=== PATIENT | female | born 1985 | race Hispanic/Latino ===

== ENCOUNTER 2024-07-27 19:46 | Emergency (ER) | payer OTHER ==
[~2024-07-27] VITALS: Ht 157.5 cm; Wt 101.6 kg
[2024-07-27 19:50] VITALS: PULSE 90; RESP 18; TEMP 97.5
[2024-07-27] MEDS: SODIUM CHLORIDE 0.9% 1000ML 1,000 ML IV STA (20:44)
[2024-07-27] MEDS ORDERED: PREDNISONE20 MG PO (22:06)
[2024-07-28 01:22] VITALS: BP 121/62; PULSE 70; RESP 18; TEMP 98.3; O2SAT 98
== END 2024-07-27 22:15 | disposition home or self-care (01) ==
LOC: FSED 19:54
DX: R20.0 Anesthesia of skin (principal); R20.2 Paresthesia of skin; I10 Essential (primary) hypertension
CPT/HCPCS: 70450; 93005; 99284; J7030

== ENCOUNTER 2024-11-12 19:40 | Emergency (ER) | payer OTHER ==
[~2024-11-12] VITALS: Ht 157.5 cm; Wt 96.6 kg
[~2024-11-12 19:40] MED LIST: PREDNISONE20 MG PO
[2024-11-12 20:00] VITALS: PULSE 75; RESP 18; TEMP 98.2
[2024-11-12] MEDS: ONDANSETRON HCL INJ 2MG/ML 2ML 2 MG/ML VIAL IV ONE (20:42)
[2024-11-12] MEDS: FAMOTIDINE 20 MG/2 ML VIAL IV ONE (20:42)
[2024-11-12] MEDS: KETOROLAC TROMETHAMINE 30 MG/ML VIAL IV STA (20:43)
[2024-11-12] MEDS: SODIUM CHLORIDE 0.9% 1000ML 1,000 ML IV STA (20:45)
[2024-11-12] MEDS ORDERED: OMEPRAZOLE40 MG PO (21:26)
[2024-11-12 22:02] VITALS: BP 169/82; PULSE 74; RESP 18; TEMP 98.2; O2SAT 99
== END 2024-11-12 22:02 | disposition home or self-care (01) ==
LOC: FSED 19:51
DX: R00.2 Palpitations (principal); K21.9 Gastro-esophageal reflux disease without esophagitis; R07.89 Other chest pain; K29.70 Gastritis, unspecified, without bleeding; I10 Essential (primary) hypertension; M06.9 Rheumatoid arthritis, unspecified
CPT/HCPCS: 71046; 80048; 80076; 81003; 81025; 84484; 85025; 85379; 93005; 96374; 96375; 99283; J1885; J2405; J7030